=== PATIENT | female | born 2005 | race Caucasian/White ===

== ENCOUNTER 2023-09-15 16:41 | Observation (INO) ==
[2023-09-15] MEDS: Lactated Ringers 1000 ml BAG 1,000 ML IV ONE (18:58)
[2023-09-15 19:16] LABS: ABS Basophils 0.1 10^3/uL (0.0-0.1); ABS Eosinophils 0.1 10^3/uL (0.0-0.5); ABS Lymphocytes 2.1 10^3/uL (1.0-4.8); ABS Monocytes 0.9 10^3/uL (0.0-0.9); ABS Neutrophils 13.5 10^3/uL (1.5-7.6); ABS Nucleated RBC 0.01 10^3/ul; Eosinophil % 0.6 %; Hematocrit 21.3 % (35-45); Hemoglobin 6.4 g/dL (11.5-14.3); Lymphocyte % 12.5 %; Mean Corpuscular Hemoglobin 17.6 pg (27-33); Mean Corpuscular Hgb Conc 30.2 g/dL (31-36); Mean Corpuscular Volume 58.4 fL (80-97); Mean Platelet Volume 8.1 fL (7.5-11.2); Platelet Count 488 10^3/uL (150-450); Red Blood Count 3.65 10^6/uL (3.63-4.92); Red Cell Distribution Width 18.3 % (12-17); White Blood Count 16.7 10^3/uL (3.8-11.8)
[2023-09-15 19:34] LABS: ALT 17 U/L (7-52); AST 14 U/L (13-39); Albumin 4.6 g/dL (3.2-5.2); Albumin/Globulin Ratio 1.8 (1-3); Alkaline Phosphatase 87 U/L (35-149); Anion Gap 7 mmol/L (2-16); Blood Urea Nitrogen 9 mg/dL (6-24); C Reactive Protein 12.43 mg/L (<8.01); CO2 Carbon Dioxide 23 mmol/L (22-32); Calcium 9.5 mg/dL (8.6-10.3); Chloride 105 mmol/L (101-111); Creatinine, Serum 0.58 mg/dL (0.51-0.95); Globulin 2.5 g/dL (2-4); Glucose 114 mg/dL (70-100); Potassium 3.9 mmol/L (3.5-5.0); Sodium 135 mmol/L (135-145); Total Bilirubin 0.5 mg/dL (0.2-1.0); Total Protein 7.1 g/dL (6.4-8.9); eGFR CKD-EPI 132.8 (>60)
[2023-09-15 19:40] LABS: HCG Pregnancy < 0.60 mIU/mL
[2023-09-15 19:43] LABS: Hypochromasia 2+; Microcytosis 3+
[2023-09-15 19:44] LABS: Anisocytosis 1+
[2023-09-15 20:10] LABS: Ferritin 1.9 ng/mL (11-307)
[2023-09-15 21:15] LABS: Urine Appearance Turbid; Urine Bilirubin Negative (Negative); Urine Blood 3+ (Negative); Urine Color Yellow; Urine Glucose Negative (Negative); Urine Ketones Negative (Negative); Urine Nitrite Negative (Negative); Urine Protein Trace (Negative); Urine Specific Gravity 1.027 (1.002-1.030); Urine Urobilinogen 1+ (Negative)
[2023-09-15 21:27] LABS: Urine Bacteria 1+ /HPF (Absent); Urine Red Blood Cell 3+(>10/hpf) /HPF (0-Trace); Urine Squamous Epithelial Cell Present /HPF (Absent); Urine White Blood Cell Trace(0-5/hpf) /HPF (0-Trace)
[2023-09-16] MEDS: Iohexol 300 (CONTRAST) 10 ML SDV IV ONE (02:06)
[2023-09-16] MEDS: cefTRIAXone 1 gm/50 mL D5W 1 GM/50 ML BAG IV ONE (06:00)
[2023-09-16 08:06] LABS: Hematocrit 27.7 % (35-45)
[2023-09-16] MEDS: Iohexol 350 (CONTRAST) 500 ML MDV IV ONE (08:08)
[2023-09-16] MEDS: NORETHINDRONE ACETATE 5 MG TAB (NF) PO ONE (12:13)
[2023-09-16] MEDS: NORETHINDRONE ACETATE 5 MG PO ONE (12:51)
[2023-09-16 13:37] LABS: INR 1.09 (0.83-1.13)
[2023-09-16] MEDS: NORETHINDRONE ACETATE 5 MG PO SCH (19:00)
[2023-09-16] MEDS: Ferric Gluconate IV 250 MG in NS 0.9% 250 ml 200 ML IVPB SCH (21:04)
[2023-09-17 08:41] LABS: Calcium 9.2 mg/dL (8.6-10.3); Creatinine, Serum 0.51 mg/dL (0.51-0.95); Potassium 4.2 mmol/L (3.5-5.0)
[2023-09-17 09:44] LABS: Hematocrit 27.5 % (35-45); Hemoglobin 8.8 g/dL (11.5-14.3); Mean Corpuscular Hemoglobin 21.3 pg (27-33); Mean Corpuscular Hgb Conc 32.1 g/dL (31-36); Mean Corpuscular Volume 66.2 fL (80-97); Mean Platelet Volume 7.9 fL (7.5-11.2); Platelet Count 410 10^3/uL (150-450); Red Blood Count 4.15 10^6/uL (3.63-4.92); Red Cell Distribution Width 28.4 % (12-17)
[2023-09-17 09:48] VITALS: BP 115/64
[2023-09-20 10:46] LABS: DRVVT Screen Ratio 1.15 ratio (<1.20); LAC APTT 30 sec (25 - 37); LAC INR 1.1 (0.9-1.1); Prothrombin Time(LAC) 12.5 sec (9.4 - 12.5)
[2023-09-20 11:41] LABS: Free Protein S Antigen 73 % (50 - 160)
[2023-09-20 12:35] LABS: Protein C Activity 92 % (70 - 150)
[2023-09-20 13:42] LABS: Phospholipid (Cardiolipin) IgA < 9.4 APL; Phospholipid Ab IgG < 9.4 GPL; Phospholipid Ab IgM, S < 9.4 MPL
[2023-09-20 15:11] LABS: Beta 2 Glycoprotein IgG <9.4 SGU
[2023-09-20 16:00] LABS: Protein S Activity, P 83 % (50-150)
[2023-09-21 13:53] LABS: Protein C Antigen, Plasma 89 % (72-160)
== END 2023-09-17 14:15 | disposition home or self-care (01) ==
LOC: EDHOLD 16:41 → ED 16:41 → MED 09-16 13:45
PROVIDERS: ADMIT Internal Medicine; ATTEND Internal Medicine